=== PATIENT | female | born 2000 | race Caucasian/White ===

== ENCOUNTER 2023-10-09 18:24 | Emergency (ER) | payer BC, SELFPAY ==
[2023-10-09 18:38] VITALS: BP 129/81; BP 130/86; PULSE 108; PULSE 78; RESP 16; TEMP 36.5; O2SAT 100; O2SAT 96; BMI 21.0
[2023-10-09 20:23] VITALS: BP 119/75; PULSE 70; RESP 20; TEMP 36.7; O2SAT 99
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
== END 2023-10-09 21:45 | disposition home or self-care (01) ==
PROVIDERS: Emergency Provider Emergency Medicine Emergency Medical Services; PCP Family Medicine
DX: Z77.098 Contact with and (suspected) exposure to other hazardous, chiefly nonmedicinal, chemicals (principal)
CPT/HCPCS: 99282; 99283